=== PATIENT | female | born 2000 | race Caucasian/White ===

== ENCOUNTER 2020-01-18 12:16 | Emergency (ER) | payer OTHER ==
--- NOTE | 2020-01-18 12:33 | ED ---
Abdominal Pain/Female - HPI Summary HPI Summary: Pt. is a 19 y.o female who presents to the ER for RLQ abd. pain x 5 days. Pt. notes pain is constant and sharp in nature. Associated symptoms of nausea/ vomiting and fever. Pt. notes increase urination. Hx of endo but pt. notes pain feels different today. Denies vaginal discharge or bleeding. Pt. states she is not sexually active. Sxs are moderate in severity. No current modifying factors. - History of Current Complaint Chief Complaint: EDAbdPain Stated Complaint: RT SIDE ABD PAIN PER PT Time Seen by Provider: 01/18/20 12:28 Hx Obtained From: Patient Pain Intensity: 9 Allergies/Adverse Reactions: Allergies Allergy/AdvReac Type Severity Reaction Status Date / Time bee venom protein (honey bee) Allergy Swelling Verified 01/18/20 14:01 lactose Allergy GI Upset Verified 01/18/20 14:01 Latex, Natural Rubber Allergy Swelling Verified 01/18/20 12:24 Home Medications: Home Medications Elagolix Sodium [Orilissa] 200 mg PO BID 01/18/20 [History Confirmed 01/18/20] Ferrous Sulfate TAB* 325 mg PO DAILY 01/18/20 [History Confirmed 01/18/20] PMH/Surg Hx/FS Hx/Imm Hx Previously Healthy: Yes Psychiatric History: Reports: Hx Eating Disorder - 13-14 Bulimic Denies: Hx of Violent Episodes Against Others Infectious Disease History: No Infectious Disease History: Denies: Traveled Outside the [place] in Last 30 Days - Family History Known Family History: Positive: Non-Contributory - Social History Occupation: Employed Full-time Lives: With Family Alcohol Use: None Substance Use Type: Reports: None Smoking Status (MU): Never Smoked Tobacco Review of Systems Positive: Fever, Chills ENT: Negative Cardiovascular: Negative Respiratory: Negative Positive: Abdominal Pain, Vomiting, Nausea Positive: frequency. Negative: discharge Neurological/Mental Status: Negative All Other Systems Reviewed And Are Negative: Yes Physical Exam Triage Information Reviewed: Yes Vital Signs On Initial Exam: Initial Vitals Temp Pulse Resp BP Pulse Ox 97.3 F 94 18 128/94 98 01/18/20 12:21 01/18/20 12:21 01/18/20 12:21 01/18/20 12:21 01/18/20 12:21 Vital Signs Reviewed: Yes Appearance: Positive: Well-Appearing - Pt. lying on bed, appears uncomfortable but nontoxic. Skin: Positive: Warm, Dry Head/Face: Positive: Normal Head/Face Inspection Eyes: Positive: Normal, EOMI Respiratory/Lung Sounds: Positive: Clear to Auscultation, Breath Sounds Present Cardiovascular: Positive: Normal, RRR Abdomen Description: Positive: Other: - Abd. is soft with marked tenderness to right lower quadrant and adnexal region with guarding. No CVA tenderness. Pelvic Exam: Positive: Other - Exam performed with Hope, ER aid. External genitalia unremarkable. Speculum exam revealed a small amount of whitish discharge. No cervical friability. Negative cervical motion tenderness. Neurological: Positive: Normal, CN Intact II-III Psychiatric: Positive: Affect/Mood Appropriate Procedures - Sedation Patient Received Moderate/Deep Sedation with Procedure: No Diagnostics - Vital Signs Vital Signs Temp Pulse Resp BP Pulse Ox 01/18/20 12:21 97.3 F 94 18 128/94 98 - Laboratory Result Diagrams: 01/18/20 13:47 01/18/20 13:47 Lab Statement: Any lab studies that have been ordered have been reviewed, and results considered in the medical decision making process. Abdominal Pain Fem Course/Dx - Course Course Of Treatment: Patient was significantly right lower quadrant pain since Thursday as well as nausea vomiting and subjective fever. She is afebrile the ER. Differential includes appendicitis, ovarian torsion, , urolithiasis, pyelonephritis. Patient is given IV fluids, Zofran and Toradol. Pelvic ultrasound obtained to rule out ovarian torsion. Transvaginal ultrasound per radiology IMPRESSION: SMALL AMOUNT OF FLUID WITHIN THE ENDOCERVICAL CANAL. NO SONOGRAPHIC FEATURES OF TORSION. PLEASE NOTE THAT PARTIAL OR INTERMITTENT TORSION MAY BE SONOGRAPHICALLY NORMAL. . Given negative ultrasound and CT scan was ordered to evaluate for appendicitis, urolithiasis. Blood work is unremarkable. Urinalysis negative for infection. CT scan negative for acute findings per radiology. Pelvic exam performed and showed small amount of discharge, pending cultures. Patient notes she has not been sexually active in the last year. Pain actually from her history of endometriosis. Will have patient follow-up with gynecology for further evaluation. Patient would like to continue rotation of Tylenol and naproxen at home for pain. We'll return to the ER symptoms change or worsen. Patient understands and agrees with plan. - Diagnoses Differential Diagnosis: Positive: Appendicitis, Bowel Obstruction, Constipation , Ectopic , , Renal Colic, Urinary Tract Infection Provider Diagnoses: Abdominal pain, Pelvic pain Discharge ED - Sign-Out/Discharge Documenting (check all that apply): Patient Departure - Discharge Plan Condition: Good Disposition: HOME Patient Education Materials: Acute Abdominal Pain (ED), Pelvic Pain (ED) Forms: *Work Release Referrals: Karina Watts [Primary Care Provider] - Baron Shaikh JR, DO [Doctor of Osteopathy] - Additional Instructions: Schedule a follow up appointment with the [facility] for further evaluation Can continue rotation of tylenol and naproxen for pain as directed Apply warm compresses Return to ER if symptoms change or worsen - Billing Disposition and Condition Condition: GOOD Disposition: Home - Attestation Statements Provider Attestation: I was available for consult. This patient was seen by the [facility]. The patient was not presented to, seen by, or examined by me. Samy Resendiz MD
[2020-01-18] MEDS ORDERED: NS 0.9% 1000 ML** 1,000 ML IV ONE (12:48)
[2020-01-18] MEDS ORDERED: Ketorolac INJ* 30 MG/ML 1 ML VIAL IV PUSH ONE (12:48)
[2020-01-18] MEDS ORDERED: Ondansetron INJ* 2 MG/ML VIAL IV ONE (12:48)
--- OUTSIDE RECORDS SUMMARY | 2020-01-18 13:39 | XMS REPORT | Continuity of Care Document ---
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 pediatric, NOS administered Note: Abstracted -07/10/2006 ; Source: New Immunization Record OPV administered Note: Abstracted -07/10/2006 ; Source: New Immunization Record MMR administered Note: Abstracted -07/10/2006 ; Source: New Immunization Record DTaP administered Note: Abstracted -07/10/2006 ; Source: New Immunization Record MMR administered Note: Abstracted -07/10/2006 ; Source: New Immunization Record DTaP administered Note: Abstracted -07/10/2006 ; Source: New Immunization Record Hib (HbOC) administered Note: Abstracted -07/10/2006 ; Source: New Immunization Record varicella administered Note: Abstracted -07/10/2006 ; Source: New Immunization Record OPV administered Note: Abstracted -07/10/2006 ; Source: New Immunization Record Hib (HbOC) administered Note: Abstracted -07/10/2006 ; Source: New Immunization Record hep B (ped/adol, 3 dose) administered Note: Abstracted -2005 ; Source: New Immunization Record DTaP administered Note: Abstracted -07/10/2006 ; Source: New Immunization Record polio, inactivated (IPV) administered Note: Abstracted -2005 ; Source: New Immunization Record Hib (HbOC) administered Note: Abstracted -07/10/2006 ; Source: New Immunization Record DTaP administered Note: Abstracted -07/10/2006 ; Source: New Immunization Record polio, inactivated (IPV) administered Note: Abstracted -2005 ; Source: New Immunization Record Hib (HbOC) administered Note: Abstracted -07/10/2006 ; Source: New Immunization Record DTaP administered Note: Abstracted -07/10/2006 ; Source: New Immunization Record hep B (ped/adol, 3 dose) administered Note: Abstracted -2005 ; Source: New Immunization Record hep B (ped/adol, 3 dose) administered Note: Abstracted -2005 ; Source: New Immunization Record HPV cancelled Source: New Immunization Record Payers Payer name Insurance type Covered democrat ID Authorization(s) Workers Compensation [id number] Chad Mcclendon [id number] Social History Type Description Quantity Date Captured Comments Unknown Vital Signs Date / Height Weight BMI Pulse Blood Temperature Respiratory Body Head BMI Time: Rate Pressure Rate Surface Circumference percentile Area Unknown Chief Complaint And Reason For Visit No information Reason For Referral Reason For Referral Unknown Plan Of Care Date Type Action Status Referral Ordered: ordered Physical Therapy (related to Abdominal wall pain in suprapubic region) Referral Referred To: ordered Physical Therapy Ordered: Referrals: Referrals: Physical Therapy. Location: [facility]. Evaluate and treat Physical Therapy. Location: [facility]. Evaluate and treat Referral Ordered: ordered Referrals: Obstetrics and Gynecology. Location: [facility] Appointment date/timeframe: 06/01/2019 Referral Ordered: ordered DAVID MALAVE MD -Bariatric Surgery (related to Body mass index (BMI) 40.0- 44.9, adult) Referral Referred To: ordered DAVID MALAVE MD [address] [place], [address] [phone] Ordered: Referrals: Bariatric Surgery. DAVID MALAVE MD. Evaluate and treat Referral Ordered: ordered Breast Ultrasound Limited Left Referral Ordered: ordered U/S Transvaginal [facility] Appointment date/timeframe: 01/29/2018 Referral Ordered: ordered Gynecology (related to Irregular periods) Referral Ordered: ordered Referrals: Gynecology. Location: [facility]. Evaluate and treat Referral Ordered: ordered Polysomnography, 4+ add'l params Referral Ordered: ordered Pelvic Transabdominal Ultrasnd Date Type Problem Goal Intervention Status Start Date Unknown History Of Present Illness Encounter Date Complaint History Of Present Illness No information Functional Status Encounter Date Functional Assessment Cognitive Assessment Unknown Medications Administered Medication Instructions Dosage Effective Dates (start - stop) Status Comments Drug Treatment Unknown Instructions Date Instruction Additional Information Eat a container of yogurt daily while Related to Acute vaginitis on antibiotics Abstain from sexual intercourse until treatment complete. Take medication as prescribed. Do not drink any alcohol while on medication Take medication as prescribed. Use only Related to Candidiasis of vulva Dove white soap in the vaginal area, and vagina wear cotton underwear. Discussed use of probiotics or yogurt intake. Thank you for visiting me today. you may receive a questionnaire regarding today's visit. Your input is vitally important to me personally and to our office. We strive for Excellence. If for any reason you cannot rate me and our office with the best rating please contact me. You may reach me via our office phone ([phone]) or anonymously through comments on the survey. Thank you again for entrusting your health care to me and my team at [facility] RTO prn Related to Encntr for f/u exam aft trtmt for cond oth than maltirso neoplm Consider Depo-Provera, Mirena IUD or Related to DUB ( dysfunctional resuming OCs if declines endometriosis uterine bleeding) therapy Consider beginning Lupron or Orlissa Related to Endometriosis versus menstrual suppression with determined by laparoscopy Depo-Provera Begin vitamins with iron, Cryselle, Related to DUB (dysfunctional schedule D&C, hysteroscopy, consider uterine bleeding) Mirena IUD insertion. routine PAT's, RTO 1-2 weeks postop Repeat pelvic ultrasound Related to Ovarian cyst, left schedule laparoscopy, routine PAT's Related to Pelvic pain in female Risks and benefits of new medication Related to Oligomenorrhea discussed. HCG, OH-progesterone, PRL. Begin cyclic Aygestin day 14-25 if hCG is negative. RTO 3 to 4 months for reevaluation Continue naproxen as needed, consider Related to Pelvic pain in female diagnostic laparoscopy if symptoms persist, literature given Risks and benefits of new medication Related to Pelvic pain in female discussed. Startdiclofenac 50mg twice daily. Stop other paimn medications. Continue the antibiotic, and the dental Related to Pain, dental rinse. Finish the pain medication. Pt will use the cefdinir one teaspoon Related to Acute right otitis twice per day for 10 days, increase media fluids, rest and call for further needs or concerns. Pt was also given a note to be out of work on 11/17 and 11/19/18. See above. Related to Acute sinusitis with symptoms > 10 days Cultures were obtained today, I will Related to Acute vaginitis give diflucan one tablet now and monistat cream externally as needed for rash or pain in the vaginal area. Call if symtpoms persist or fail to improve . PT will restart her Prozac at 20mg one Related to Anxiety and depression per day and will increase to two per day after the second week, recheck in one month. Call for any needs or concerns. Risks and benefits of new medication discussed. Patient verbalized understanding Pt will be referred to DR Malave and Related to Class 3 severe obesity [facility] in [place] for bariatric with serious comorbidity and body discussion. Continue to monitor all mass index (BMI) of 40.0 to 44.9 foods that you take in and record in a in adult, unspecified obesity type notebook and increase the exercise. I discussed the concept of calories in and calories burned and that she will need to be at a calorie deficit for the day to lose a pound. She stated that when she walks on the treadmill it only maddox 50 calories, I suggested walking quickly for a few minutes then slowly while she catches her breath and then trying to walk quickly again to burn more calories. She seemed receptive. We reviewed the labs with the patient Related to Fatigue, unspecified in detail, will start on type vitamins as she is actively trying to become at this time. pT will restart her Prozac at 40mg and Related to Moderate episode of will recheck here in 3 months, call for recurrent major depressive any further needs or concerns. Risks disorder and benefits of new medication discussed. Patient verbalized understanding. We reviewed options for patient who is depressed but trying to become and that prozac is a lower risk medication than others, but still has some possible side effects for the unborn child. She will see how things go and will restart at this time. Pt will start a 1500calorie diet and Related to Weight gain will try to exercise for at least 30 minutes to 1 hour every day. Labs ordered, will follow up next week. Related to Fatigue, unspecified type Will order labs and patient will follow Related to Amenorrhea up next week . Pt has stopped the effexor 1.5 weeks Related to Current severe episode ago and will start on Prozac 20mg one of major depressive disorder per day for the next two weeks then without psychotic features without increase to two per day and recheck in prior episode 1 month. I encouraged her to continue with her counseling, she is declining at this time, states that they want her to do drug and alcohol counseling due to past issues, none now and she feels not appropriate. Have ultrasound completed. Decrease Related to Breast pain in female caffeine intake. Try to supplement with evening primrose oil and vitamin E. Wear good support bra. We may consider referral to breast center in future. Have blood work completed. Take Related to Irregular menses provera (medrxyprogesterone) for 10 days, you will get menses after you finish with the provera, it may take 1 to 2 weeks once medication is completed. If you start bleeding while on the medication stop taking it and count that as day 1 of bleeding. You will then start Prometrium on Day 12 and continue taking it until day 23 of cycle. Count to day 28 and then start cycle all over again. You will take Prometrium each month on days 12-23 at night. Items reviewed/discussed during today's Related to Encntr for lathe set up person exam visit: prior testing/procedures were (general) (routine) w/o abn reviewed;; prescribed medication usage findings was discussed; reassurance of findings given; symptomatic care discussed; patient expressed understanding of instructions.No pap done according to guidelines. Cultures done today, we will contact you with results. Thank you for visiting me today. you may receive a questionnaire regarding today's visit. Your input is vitally important to me personally and to our office. We strive for Excellence. If for any reason you cannot rate me and our office with the best rating please contact me. You may reach me via our office phone ([phone]) or anonymously through comments on the survey. Thank you again for entrusting your health care to me and my team at [facility] Encourage healthy diet and exercise. Related to Adult BMI 34.0- 34.9 kg/sq m Stop the Wellbutrin and start Effexor Related to Current severe episode XR 150mg one per day for the next 6 of major depressive disorder weeks and recheck, given a list of without psychotic features without providers for psychiatric care . She prior episode will call for further needs or concerns, she has the crisis center numbers and will agree to call for further needs or concerns. WE reviewed that if she feels worse instead of better, she is to call. She agrees to call . Pt is going to be next month and will be too busy for a follow up,she will come in 6 weeks. Pt will have an ultrasound and labs Related to Irregular periods done and will keep her follow up appt with BISMARK Addison for March 09. Continue with the current medications Related to Current severe episode and please call for any of the side of major depressive disorder effects that we discussed. The Crisis without psychotic features without center hotline number is [phone] for prior episode any emergencies. Please call the office for any change or sudden worsening of condition. Counseling is encouraged, handout given. Please keep your follow up appointment here, as well. Thanks! Pt will start taking the wellbutrin every evening and will keep her appt for counseling later this month. Pt will continue follow up with her Related to Seizure disorder neurologist, will continue her current dose of zonegran. pt will start on Wellbutrin at 150mg Related to Current severe episode per day each morning and will recheck of major depressive disorder in 2 weeks. Emotional support given, pt without psychotic features without is feeling depressed today, sleeping prior episode most of the day, she has a supportive fiance and his family.She has taken wellbutrin previously and has had good success with that in the past. Risks and benefits of new medication discussed. Patient verbalized understanding I reviewed contraception options with Related to Irregular periods the patient, she is not interested in any form of contraception. Pt is in the process of getting Related to Anxiety and depression appointments with her counselor and psychiatrist. She is working with her case assistant. Her form was completed based on her report of psychiatric conditions today. Pt will continue to follow up with Related to Seizure disorder Neurology and continue her medication. Call for further needs or cocnerns. Increase rest and fluids. Please take Related to Viral URI with cough over the counter decongestant or antihistamine if tolerable such as Mucinex D or ClaritinPerform good hand hygiene.Warm moist facial compressesIbuprofen (Advil, Motrin) or Tylenol (Acetaminophen) as neededIf chest pain, increased shortness of breath, or heart palpitations occur seek emergency attention Follow up with your PCP if no improvement, worsening or new symptoms. - Thank you for choosing the [facility]. We hope that you will be feeling better soon.Any condition can change and some diseases may worsen despite proper treatment. Other problems may begin with vague or unusual symptoms and only over time will the problem become more clear, making it possible to arrive at the correct diagnosis. Your visit today is not a substitute for, or an effort to provide complete medical care. In most cases, you should let your primary care doctor check you again. Tell your doctor about any new or lasting problems. If you do not have a primary care provider, you have been given a list today of local providers who are accepting new patients. All x-rays are interpreted by a radiologist, usually within 48 hours. If there is any important difference between the radiologist's interpretation and what you were told today by the provider, you will be notified. If you had cultures done today, the results will be available in 72 hours, depending on the specimen. P calista appt next week , 11/26/17 to see Related to Seizure disorder her Neurologist and a message has been given to him today to make him aware of the side effects from her Topamax they agree to call her if he feels that he should see her sooner. Pt agrees to keep that appt. In the meantime, she will continue her Topamax twice per day at the current dose for now. I did encourage her to see a psychiatrist, make appt for her history of bipolar disorder . She is resistant. I also encouraged her to continue to eat and drink three meals per day and drink water at least 5- 8 ounce glasses per day. I reviewed with the patient that she Related to Irregular periods should return for further work up of the irregular periods and try to determine why that is occuring. Also that she should be certain that her boyfriend is sterile, ask him about that further before assuming that she cannot get . We discussed control, she is not interested at this time and also I educated her regarding the importance of using condoms. Pt will see Dr Johnson next thursday and Related to Syncope, unspecified will follow up afterward. syncope type Pt agrees to keep her appt with Dr Related to Seizure disorder Alex next week, she is going to continue to take her Keppra morning and night. She is not working right now and understands that she may not return to work until released by Dr Johnson. She is fainting when she takes a shower so will continue to have someone with her when she showers. I reviewed the H&P, labs, Discharge and consultation summaries with her and reconciled her medications. Paper work completed for school/sports Related to routine / child physical. No issues noted at this time. health checkup Schedule an appt to come back to the office for Varicella vaccine - can schedule a Nurses visit to have that completed.
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
[2020-01-18 14:05] LABS: Urine Appearance Cloudy; Urine Bilirubin Negative (Negative); Urine Blood Negative (Negative); Urine Color Straw; Urine Glucose Negative (Negative); Urine Ketones Negative (Negative); Urine Nitrite Negative (Negative); Urine Protein Negative (Negative); Urine Urobilinogen Negative (Negative)
[2020-01-18 14:17] LABS: ABS Eosinophils 0.1 10^3/ul (0-0.6); ABS Lymphocytes 2.8 10^3/ul (1.0-4.8); ABS Monocytes 0.5 10^3/ul (0-0.8); ABS Neutrophils 4.7 10^3/ul (1.5-7.7); Eosinophil % 1.7 %; Hematocrit 43 % (35-47); Hemoglobin 15.3 g/dL (12.0-16.0); Lymphocyte % 34.7 %; Mean Corpuscular HGB Conc 36 g/dL (31-36); Mean Corpuscular Hemoglobin 31 pg (27-31); Mean Corpuscular Volume 87 fL (80-97); Mean Platelet Volume 8.6 fL (7.4-10.4); Platelet Count 247 10^3/uL (150-450); Red Blood Count 4.93 10^6 /uL (3.70-4.87); Red Cell Distribution Width 13 % (10-15); White Blood Count 8.2 10^3/uL (3.5-10.8)
[2020-01-18 14:29] LABS: ALT 15 U/L (7-52); AST 14 U/L (13-39); Albumin 4.4 g/dL (3.2-5.2); Albumin/Globulin Ratio 1.7 (1-3); Alkaline Phosphatase 59 U/L (34-104); Anion Gap 7 mmol/L (2-11); BUN/Creatinine Ratio 18.8 (8-20); Blood Urea Nitrogen 13 mg/dL (6-24); C Reactive Protein 10.06 mg/L (<8.01); CO2 Carbon Dioxide 25 mmol/L (22-32); Calcium 9.7 mg/dL (8.6-10.3); Chloride 107 mmol/L (101-111); EGFR Non-African American 107.4 (>60); Globulin 2.6 g/dL (2-4); Glucose 92 mg/dL (70-100); Potassium 3.8 mmol/L (3.5-5.0); Sodium 139 mmol/L (135-145)
[2020-01-18 14:33] LABS: HCG Pregnancy < 0.60 mIU/mL
[2020-01-18] MEDS ORDERED: Iohexol 300* (CONTRAST) 10 ML SDV IV ONE (14:55)
[2020-01-18 16:03] VITALS: BP 132/79
[2020-01-19 13:27] LABS: Trichomonas vag NAA Female Negative (Negative)
[2020-01-19 13:47] LABS: Chlamydia trachomatis NAA Negative (Negative); Neisseria gonorrhoeae (GC) NAA Negative (Negative)
== END 2020-01-18 16:02 | disposition home or self-care (01) ==
LOC: ED 12:16
DX: R10.31 Right lower quadrant pain (principal); R10.2 Pelvic and perineal pain; R11.2 Nausea with vomiting, unspecified; R50.9 Fever, unspecified; R35.0 Frequency of micturition; Z91.030 Bee allergy status; Z91.040 Latex allergy status; Z91.011 Allergy to milk products
CPT/HCPCS: 36415; 74177; 76830; 80053; 81003; 84702; 85025; 86140; 87480; 87491; 87510; 87591; 87661; 96374; 96375; 99283; J1885; J2405; Q9967